=== PATIENT | male | born 1965 | race African-American/Black ===

== ENCOUNTER 2016-11-05 08:44 | Inpatient (IN) | payer OTHER ==
[~2016-11-05] VITALS: Ht 180.3 cm; Wt 125.2 kg
[2016-11-05] MEDS ORDERED: FURO-152 PO (08:48)
[2016-11-05] MEDS ORDERED: METO-296 PO (08:48)
[2016-11-05 10:10] LABS: BASOPHILS % 0.6 % (0.0-2.0); EOSINOPHILS % 1.7 % (0.0-5.0); HEMATOCRIT. 51.8 % (42.0-52.0); HEMOGLOBIN. 16.9 g/dL (14.0-18.0); LYMPHOCYTES % 14.4 % (20.0-50.0); MEAN CORPUSCULAR HEMOGLOBIN 31.7 pg (28.0-32.0); MEAN CORPUSCULAR VOLUME 97.4 fL (80.0-94.0); MEAN PLATELET VOLUME 9.4 fl (7.4-10.4); MONOCYTES % 3.8 % (2.0-8.0); NEUTROPHILS % 79.5 % (40.0-76.0); PLATELET 94 x1000/uL (130-400); RED BLOOD CELL COUNT 5.31 mill/uL (4.7-6.1); RED CELL DISTRIBUTION WIDTH 15.4 % (11.6-14.6)
[2016-11-05 10:22] LABS: D-DIMER 1.27 mg/L FEU (<0.50); INR 1.6; PARTIAL THROMBOPLASTIN TIME 29.1 sec (23.4-31.0); PROTHROMBIN TIME 16.7 sec (9.4-11.6)
[2016-11-05 10:25] LABS: CARBON DIOXIDE 24 mEq/L (21-32); CHLORIDE 106 mEq/L (98-107)
[2016-11-05 10:29] LABS: TROPONIN I < 0.02 ng/mL (0.00-0.04)
[2016-11-05 10:33] LABS: CLARITY URINE CLEAR (CLEAR); COLOR URINE YELLOW (YELLOW); GLUCOSE URINE NEGATIVE (NEGATIVE); KETONES URINE NEGATIVE (NEGATIVE); LEUKOCYTE ESTERASE URINE NEGATIVE (NEGATIVE); NITRITE URINE NEGATIVE (NEGATIVE); OCCULT BLOOD URINE NEGATIVE (NEGATIVE); PROTEIN URINE 2+ (NEGATIVE); SPECIFIC GRAVITY URINE 1.007 (1.005-1.030)
[2016-11-05 11:17] LABS: *AMPHETAMINES SCREEN URINE NEGATIVE (NEGATIVE); *BARBITURATES SCREEN URINE NEGATIVE (NEGATIVE); *BENZODIAZEPINES SCREEN URINE NEGATIVE (NEGATIVE); *COCAINE SCREEN URINE NEGATIVE (NEGATIVE); CANNABINOID URINE SCREEN NEGATIVE (NEGATIVE); METHADONE URINE SCREEN NEGATIVE (NEGATIVE); OPIATES URINE SCREEN NEGATIVE (NEGATIVE); PHENCYCLIDINE URINE SCREEN NEGATIVE (NEGATIVE)
[2016-11-05] MEDS ORDERED: SODIUM CHLORIDE 0.9% 1,000 ML IV ONE (13:00)
[2016-11-05] MEDS ORDERED: SODIUM CHLORIDE 0.9% 500 ML IV ONE (13:00)
[2016-11-05 14:00] VITALS: BP 112/80
[2016-11-05] MEDS: SPIRONOLACTONE 25MG TABLET PO SCH (14:30)
[2016-11-05] MEDS ORDERED: DIGOXIN 500MCG/2ML AMP IV NR (14:30)
[2016-11-05] MEDS: FUROSEMIDE 40MG/4ML VIAL IVP SCH (15:33)
[2016-11-05 16:00] VITALS: BP 113/86
[2016-11-05] MEDS: RIVAROXABAN 20 MG TABLET PO SCH (17:59)
[2016-11-05] MEDS ORDERED: IPRATROPIUM/ALBUTEROL 0.5-3(2.5)MG/3ML NEB INH PRN (18:30)
[2016-11-05] MEDS ORDERED: ONDANSETRON HCL 4MG/2ML VIAL IV PRN (18:30)
[2016-11-05] MEDS ORDERED: ACETAMINOPHEN 325MG TABLET PO PRN (18:30)
[2016-11-05] MEDS ORDERED: MAGNESIUM/ALUMINUM HYDROXIDE/SIMETHICONE 30ML UDC PO PRN (18:30)
[2016-11-05] MEDS ORDERED: DOCUSATE SODIUM 100MG CAPSULE PO PRN (18:30)
[2016-11-05 20:00] VITALS: BP 109/88
[2016-11-05] MEDS ORDERED: ZOLPIDEM TARTRATE 5MG TABLET PO PRN (21:00)
[2016-11-05] MEDS: CARVEDILOL 3.125 MG TABLET PO SCH (21:35)
[2016-11-06] VITALS (7 sets, daily range): BP systolic 108–128; BP diastolic 74–96
[2016-11-06 06:20] LABS: BASOPHILS % 0.9 % (0.0-2.0); EOSINOPHILS % 2.3 % (0.0-5.0); HEMATOCRIT. 45.5 % (42.0-52.0); LYMPHOCYTES % 27.2 % (20.0-50.0); MEAN CORPUSCULAR HEMOGLOBIN 31.9 pg (28.0-32.0); MEAN CORPUSCULAR VOLUME 96.8 fL (80.0-94.0); MEAN PLATELET VOLUME 10.6 fl (7.4-10.4); MONOCYTES % 10.3 % (2.0-8.0); NEUTROPHILS % 59.3 % (40.0-76.0); PLATELET 101 x1000/uL (130-400); RED BLOOD CELL COUNT 4.71 mill/uL (4.7-6.1); RED CELL DISTRIBUTION WIDTH 15.1 % (11.6-14.6)
[2016-11-06 06:31] LABS: CARBON DIOXIDE 23 mEq/L (21-32); CHLORIDE 108 mEq/L (98-107)
[2016-11-06] MEDS ORDERED: OMEPRAZOLE 20MG CAPSULE EXTENDED RELEASE PO SCH (07:40)
[2016-11-06] MEDS ORDERED: PNEUMOCOCCAL 23-VAL P-SAC VAC 0.5 ML IM ONE (08:00)
[2016-11-06] MEDS: SPIRONOLACTONE 25MG TABLET PO SCH (08:40)
[2016-11-06] MEDS: CARVEDILOL 3.125 MG TABLET PO SCH (08:40)
[2016-11-06] MEDS ORDERED: POTASSIUM CHLORIDE 20MEQ TABLET SR PO SCH (09:00)
[2016-11-06] MEDS: FUROSEMIDE 40MG/4ML VIAL IVP SCH (10:18)
[2016-11-06] MEDS ORDERED: DIGOXIN 500MCG/2ML AMP IV NR (13:30)
[2016-11-06] MEDS: RIVAROXABAN 20 MG TABLET PO SCH (16:58)
[2016-11-06] MEDS ORDERED: CARVEDILOL 6.25 MG TABLET PO SCH (21:00)
== END 2016-11-06 21:40 | disposition short-term general hospital (02) | DRG 291 ==
LOC: ER 09:14 → 7WST 11:55 → ENRESERV 12:34
PROVIDERS: ADMIT Family Medicine Adult Medicine; ATTEND Family Medicine Adult Medicine
DX: I13.0 Hypertensive heart and chronic kidney disease with heart failure and stage 1 through stage 4 chronic kidney disease, or unspecified chronic kidney disease (principal); I50.43 Acute on chronic combined systolic (congestive) and diastolic (congestive) heart failure; E87.2 Acidosis; N17.9 Acute kidney failure, unspecified; D68.9 Coagulation defect, unspecified; R18.8 Other ascites; I95.9 Hypotension, unspecified; E44.1 Mild protein-calorie malnutrition; Z79.01 Long term (current) use of anticoagulants; F17.210 Nicotine dependence, cigarettes, uncomplicated; R74.0 Nonspecific elevation of levels of transaminase and lactic acid dehydrogenase [LDH]; I48.0 Paroxysmal atrial fibrillation; N18.9 Chronic kidney disease, unspecified; E87.6 Hypokalemia; K76.9 Liver disease, unspecified; Z88.8 Allergy status to other drugs, medicaments and biological substances; Z79.899 Other long term (current) drug therapy; Z82.49 Family history of ischemic heart disease and other diseases of the circulatory system; Z68.38 Body mass index [BMI] 38.0-38.9, adult
CPT/HCPCS: 36415; 71010; 80048; 80053; 80305; 81001; 83605; 83880; 84484; 85025; 85379; 85610; 85730; 87040; 93005; 93306; 93970; 99291; G0482; J1160; J1940; J7030; J7040